=== PATIENT | female | born 1935 | race Caucasian/White ===

== ENCOUNTER 2021-06-03 10:30 | Outpatient (CLI) | payer MEDICARE, OTHER ==
[~2021-06-03 10:30] MED LIST: AMIT-189 PO; ASPI-1265 PO; ATEN-169 PO; AZIT500T PO; CARI350T PO; FENO135C3 PO; IRON-11 PO; LEVO500T2 PO; LISI-232 PO; LOVA40TA76 PO; METF500T PO; NITR0.4T48 SL; NORCO10T PO; OMEG300C2 PO
== END 2021-06-03 23:59 | disposition home or self-care (01) ==
LOC: CARD DIAG 10:30
PROVIDERS: ATTEND Internal Medicine Cardiovascular Disease
DX: I08.3 Combined rheumatic disorders of mitral, aortic and tricuspid valves (principal); I50.22 Chronic systolic (congestive) heart failure
CPT/HCPCS: 93306